=== PATIENT | male | born 1970 | race Caucasian/White ===

== ENCOUNTER 2017-04-20 01:30 | Emergency (ER) | payer OTHER ==
[~2017-04-20] VITALS: Ht 165.1 cm; Wt 72.6 kg
[~2017-04-20 01:30] MED LIST: Flomax0.4 MG PO; OXYACE5T PO; Percocet 5-3251 EACH PO; RXOXYACE PO; Zofran Odt4 MG PO
== END 2017-04-20 02:30 | disposition home or self-care (01) ==
LOC: ER 01:30
DX: S00.83XA Contusion of other part of head, initial encounter (principal); F17.200 Nicotine dependence, unspecified, uncomplicated; W50.0XXA Accidental hit or strike by another person, initial encounter
CPT/HCPCS: 99282

== ENCOUNTER 2023-10-11 20:13 | Emergency (ER) | payer OTHER ==
[~2023-10-11] VITALS: Ht 170.2 cm; Wt 72.6 kg
[2023-10-11 20:36] VITALS: BP 110/99
[2023-10-11] MEDS ORDERED: PRED20 PO (20:40)
[2023-10-11] MEDS ORDERED: DiphenhydrAMINE HCL 25 MG Cap PO ONE (20:45)
[2023-10-11] MEDS ORDERED: PredniSONE 20 MG Tab PO ONE (20:45)
== END 2023-10-11 21:04 | disposition home or self-care (01) ==
LOC: ER 20:13
DX: L25.9 Unspecified contact dermatitis, unspecified cause (principal); F17.200 Nicotine dependence, unspecified, uncomplicated
CPT/HCPCS: 99282; A9270; J7512

== ENCOUNTER → 2024-02-13 | Outpatient (CLI) | payer OTHER ==
[~2024-02-13] MED LIST changes: +PRED20 PO
[2024-02-13 14:40] LABS: BASOPHILS ABSOLUTE AUTO 0.06 K/mm3 (0.00-0.23); BASOPHILS PERCENT AUTO 1 % (0-2); EOSINOPHILS ABSOLUTE AUTO 0.05 K/mm3 (0.00-0.68); EOSINOPHILS PERCENT AUTO 1 % (0-6); Hematocrit 48.9 % (37.0-53.0); Hemoglobin 17.1 g/dL (13.5-17.5); IMMATURE GRAN ABSOLUTE AUTO 0.02 K/mm3 (0.00-0.10); IMMATURE GRAN PERCENT AUTO 0 % (0-1); LYMPHOCYTES ABSOLUTE AUTO 1.63 K/mm3 (0.84-5.20); LYMPHOCYTES PERCENT AUTO 28 % (21-46); MONOCYTES ABSOLUTE AUTO 0.47 K/mm3 (0.16-1.47); MONOCYTES PERCENT AUTO 8 % (4-13); Mean Corpuscular HGB 31.5 pg (26.0-34.0); Mean Corpuscular Volume 90 fL (80-100); Mean Platelet Volume 11.1 fL (9.1-12.4); NEUTROPHILS ABSOLUTE AUTO 3.53 K/mm3 (1.96-9.15); NEUTROPHILS PERCENT AUTO 61 % (41-73); Platelet Count 163 K/mm3 (150-400); RDW Coefficient Variation 12.1 % (11.7-14.2); RDW Standard Deviation 39.8 fL (35.1-46.3); Red Blood Cell Count 5.42 M/mm3 (4.30-5.90); White Blood Cell Count 5.76 K/mm3 (4.00-11.30)
[2024-02-13 15:12] LABS: Albumin, Blood 3.9 g/dL (3.4-5.0); Albumin/Globulin Ratio 1.1 (0.8-1.8); Bilirubin, Total 0.5 mg/dL (0.1-1.0); Bun/Creatinine Ratio 14.8 (12.0-20.0); Calcium, Blood 9.5 mg/dL (8.5-10.1); Creatinine, Blood 1.22 mg/dL (0.60-1.20); Globulin, Blood 3.7 g/dL (2.2-4.0); Magnesium, Blood 2.1 mg/dL (1.6-2.4); Potassium, Blood 3.7 mmol/L (3.5-5.5); Thyroid Stimulating Hormone 2.506 uIU/mL (0.360-4.800); Total Protein, Blood 7.6 g/dL (6.4-8.2)
== END | disposition home or self-care (01) ==
LOC: LAB SHORT 14:34 → LAB 14:34
PROVIDERS: Chiropractor
DX: R61 Generalized hyperhidrosis (principal); R73.9 Hyperglycemia, unspecified
CPT/HCPCS: 80053; 83036; 83735; 84443; 85025

== ENCOUNTER 2024-05-05 15:39 | Emergency (ER) | payer OTHER ==
[~2024-05-05] VITALS: Ht 165.1 cm; Wt 68.0 kg
[2024-05-05 15:52] VITALS: BP 159/116
[2024-05-05] MEDS ORDERED: Dexamethasone Sod Phos 10 MG/ML 1ML VIAL PO ONE (17:05)
[2024-05-05] MEDS ORDERED: Amoxicillin 875 MG Tab PO ONE (17:05)
[2024-05-05] MEDS ORDERED: Amoxicillin875 MG PO (17:25)
== END 2024-05-05 17:44 | disposition home or self-care (01) ==
LOC: ER 15:39
DX: J02.0 Streptococcal pharyngitis (principal); G80.9 Cerebral palsy, unspecified; F17.200 Nicotine dependence, unspecified, uncomplicated
CPT/HCPCS: 87081; 87430; 99282; A9270; J1100